=== PATIENT | female | born 1965 | race Caucasian/White ===

== ENCOUNTER 2018-07-08 18:19 | Inpatient (IN) | payer BC ==
[~2018-07-08 18:19] MED LIST: ISOVUE-370 76%-LOCM 1 ML ONE
[2018-07-08 18:51] LABS: #Lymphocytes 0.8 thou/uL (1.20-3.40); #Monocytes 0.9 thou/uL (0.11-0.59); #Neutrophils 7.9 thou/uL (1.40-6.50); %Basophils 0.1 % (0.0-1.0); %Eosinophils 0.4 % (0.0-10.0); %Lymphocytes 8.5 % (21.0-51.0); %Monocytes 9.6 % (0.0-10.0); %Neutrophils 81.3 % (42.0-75.0); Hemoglobin 13.9 g/dL (12.0-16.0); Mean Corpuscular HGB CONC 33.4 g/dL (32.0-36.0); Mean Corpuscular Hemoglobin 31.1 pg (27.0-31.0); Mean Corpuscular Volume 93.2 fL (78.0-98.0); Mean Platelet Volume 6.9 fL (7.4-10.4); Platelet Count 197 thou/uL (130-400); Red Blood Cell (RBC) Count 4.47 mill/uL (4.20-5.40); White Blood Cell (WBC) Count 9.7 thou/uL (4.8-10.8)
[2018-07-08 18:55] LABS: Bilirubin Negative (Negative); Blood, Urine Small (Negative); Clarity CLOUDY (Clear); Glucose, Urine (Dipstick) Negative (Negative); Leukocyte Large (Negative); Nitrite Negative (Negative); Protein, Urine (Dipstick) Trace mg/dL (Neg-Trace); Specific Gravity, Urine 1.009 (1.002-1.036); pH, Urine 6.5 (5.0-9.0)
[2018-07-08 18:59] LABS: Bacteria/HPF 1+ HPF (None Seen); Hyaline Casts/LPF 0-3 HYALINE CAST LPF (0-3 Hyaline); Pathc Cast-AUWi Flag 0.14 (0-2.49); Squamous Epithelial 0-3 HPF (0-3)
[2018-07-08 19:12] LABS: ALT (SGPT) 28 U/L (8-55); AST (SGOT) 25 U/L (5-34); Albumin 4.3 g/dL (3.5-5.0); Alkaline Phosphatase 87 U/L (40-150); Anion Gap 16 mmol/L (10-20); BUN (Urea Nitrogen) 8 mg/dL (9.8-20.1); Bilirubin, Total 0.7 mg/dL (0.2-1.2); Calc. Creatinine Clearance 0 mL/min (70-130); Calcium 10.3 mg/dL (7.8-10.44); Carbon Dioxide 26 mmol/L (22-29); Chloride 99 mmol/L (98-107); Estimated GFR-MDRD 83; Globulin 3.4 g/dL (2.4-3.5); Glucose 94 mg/dL (70-105); Protein, Total 7.7 g/dL (6.0-8.3); Sodium 138 mmol/L (136-145)
[2018-07-08] MEDS ORDERED: Ondansetron HCl/PF 4 MG/2 ML Vial ONE (19:20)
[2018-07-08] MEDS ORDERED: Morphine 4 MG/ML VIAL ONE ×2 (19:20→21:51)
--- NOTE | 2018-07-08 20:52 | CT ---
CT ABDOMEN AND PELVIS WITH IV CONTRAST: 07/08/18 HISTORY: Abdominal pain. COMPARISON: 07/16/15. FINDINGS: Mild atelectasis and scarring at the lung bases. Liver, spleen, kidneys, adrenal glands, and pancreas have a normal CT appearance. Postoperative changes of the cecum. Appendix is absent. Degenerative ch anges lumbar spine. No free air or free fluid. IMPRESSION: Postoperative changes. No significant abnormalities are demonstrated. POS: JONELLE
[2018-07-08] MEDS ORDERED: cefTRIAXone\\ROCEPHIN 1 GM VIAL ONE (20:55)
[2018-07-08] MEDS ORDERED: Acetaminophen 500 MG TAB ONE (20:55)
[2018-07-08] MEDS ORDERED: Potassium Chloride 20 MEQ TAB ONE (21:02)
[2018-07-08] MEDS ORDERED: Ondansetron ODT 4 MG TAB PO PRN (22:04)
[2018-07-08] MEDS ORDERED: cefTRIAXone\\ROCEPHIN 1 GM in Sodium Chloride 0.9% 100 ML IVPB SCH (23:15)
[2018-07-09 00:22] VITALS: BMI 35.1
[2018-07-09] MEDS: Acetaminophen 325 MG TAB PO PRN ×2 (03:41→14:53)
[2018-07-09] MEDS: Ketorolac Tromethamine 30 MG/ML VIAL IVP PRN ×2 (04:21→16:51)
[2018-07-09 04:30] LABS: #Lymphocytes 0.6 thou/uL (1.20-3.40); #Monocytes 0.7 thou/uL (0.11-0.59); #Neutrophils 6.4 thou/uL (1.40-6.50); %Basophils 0.3 % (0.0-1.0); %Eosinophils 0.3 % (0.0-10.0); %Lymphocytes 7.1 % (21.0-51.0); %Monocytes 9.4 % (0.0-10.0); %Neutrophils 82.9 % (42.0-75.0); Hemoglobin 11.9 g/dL (12.0-16.0); Mean Corpuscular HGB CONC 33.3 g/dL (32.0-36.0); Mean Corpuscular Hemoglobin 30.8 pg (27.0-31.0); Mean Corpuscular Volume 92.6 fL (78.0-98.0); Mean Platelet Volume 7.4 fL (7.4-10.4); Platelet Count 156 thou/uL (130-400); RBC Distribution Width 12.8 % (11.5-14.5); Red Blood Cell (RBC) Count 3.85 mill/uL (4.20-5.40); White Blood Cell (WBC) Count 7.7 thou/uL (4.8-10.8)
[2018-07-09 04:41] LABS: Anion Gap 13 mmol/L (10-20); BUN (Urea Nitrogen) 9 mg/dL (9.8-20.1); Calc. Creatinine Clearance 137 mL/min (70-130); Carbon Dioxide 23 mmol/L (22-29); Chloride 103 mmol/L (98-107); Estimated GFR-MDRD 87; Glucose 132 mg/dL (70-105); Potassium 3.1 mmol/L (3.5-5.1); Sodium 136 mmol/L (136-145)
[2018-07-09] MEDS: Sodium Chloride 0.9% 1,000 ML IV SCH ×3 (04:44→21:15)
[2018-07-09] MEDS ORDERED: ALPRAZolam 0.5 MG TAB PO SCH (04:45)
[2018-07-09] MEDS ORDERED: Potassium Chloride 20 MEQ TAB PO SCH ×2 (05:30→18:30)
--- NOTE | 2018-07-09 06:39 | HP ---
CHIEF COMPLAINT: Abdominal pain. HISTORY OF PRESENT ILLNESS: This is a 53-year-old female who presents to the ED with chief complaint of left lower abdominal pain radiating to the back, which started last night prior to the day of adm ission. Per the patient, the pain was 10/10 and the patient stated that nothing seemed to make the pa in better. The patient also states that she has had associated symptoms of myalgias, feeling ill and having chills. In addition, the patient states that she recently also had a divorce with her husban d and she has been feeling a little stressed from the situation. The patient states that now she is by herself and she just has a big dog that she takes care of by herself and she does all the chores i n the house and it is a little bit much. The patient has had a history of back surgeries and hip rep lacements in the past and the patient states that all these are contributing to her pains in her join ts, in her back, in addition to everything else that is going on. The patient denies any seizures at this time, diarrhea, dysuria, increase in frequency with urination. REVIEW OF SYSTEMS: Positive for chills, abdominal pain, myalgias and back and joint pains. Otherwis e as documented in the HPI. All other systems were reviewed and are negative. FAMILY HISTORY: Reviewed and noncontributory. PAST MEDICAL HISTORY: 1. Subdural hemorrhage. 2. Hyperlipidemia 3. Hypertension. PAST SURGICAL HISTORY: Appendectomy, lumbar surgery, total hip replacement of the right, hysterectom y, tonsillectomy. PSYCHIATRIC HISTORY: Depression, anxiety. SOCIAL HISTORY: The patient used to be a heavy smoker, quit about 5 years ago, but smokes some tobac co occasionally with her friends when they are drinking. The patient states that she has less than 5 drinks per day. The patient denies any illicit drug use. The patient currently lives at home by he rself with her dog. ALLERGIES: No known drug allergies. HOME MEDICATIONS: The patient takes pravastatin 80 mg, sertraline 25 mg, bisoprolol 10 mg, Xanax, es tradiol. PHYSICAL EXAMINATION: VITAL SIGNS: Blood pressure is 160/74, pulse of 100, respiratory rate of 17, temperature of 102.9, o xygen saturation of 94% on room air. GENERAL: The patient is lying on her left side, complaining of left quadrant abdominal pain, not in acute distress, able to speak in full sentences. HEENT: Normocephalic, atraumatic. Pupils are equally round and react to light. Extraocular movemen ts are intact. No scleral icterus. Mucous membranes are moist. NECK: No JVD. Full range of motion, supple. LUNGS: Clear to auscultation bilaterally. No wheezing, no rales, no rhonchus appreciated. CARDIOVASCULAR: Positive S1, S2, regular rate and rhythm. No murmurs appreciated. ABDOMEN: Mild tenderness at the left lower quadrant and suprapubic region. Obese abdomen. Soft, po sitive bowel sounds. BACK: Full range of motion, no tenderness. EXTREMITIES: 5/5 upper extremity strength, good pulses bilaterally, 5/5 lower extremity strength, go od pulses bilaterally. No edema noted at the lower extremities. NEUROLOGIC: Cranial nerves II-XII grossly intact. No neurologic deficit noted. SKIN: Warm, dry, and intact. EMERGENCY DEPARTMENT COURSE: The patient received Tylenol, Rocephin, normal saline, Zofran, and morp rush in the ED. LABORATORY DATA: WBC is 9.7, hemoglobin 13.9, hematocrit is 41.7, platelets 197, neutrophils of 81.3 , lymphocytes of 8.5. Sodium 138, potassium of 3.0, BUN of 8, creatinine is 0.73. Lactic acid of 0. 7, AST 25, ALT 28, alkaline phosphatase of 87. Urinalysis positive for leukoesterase negative for ni trites. ASSESSMENT AND PLAN: This is a 53-year-old female being admitted for: 1. Sepsis secondary to urinary tract infection. At this point, the patient has been started on Roce phin. We will continue Rocephin. We will continue IV hydration. We will give patient p.r.n. medica tion for pain. We will follow up morning labs. 2. Hypokalemia, replete the patient's potassium. We will follow up in the morning. 3. Generalized pain. At this point we will continue patient on p.r.n. pain medication. We will mon itor the patient closely. 4. History of depression, anxiety. The patient recently her . The patient is venkata sam at this time. We will start the patient on her home depressive medications. We will continue Xanax p.r.n. 5. Hypertension. We will continue the patient on her home medication. 6. Hyperlipidemia. We will continue patient on home medications. 7. Deep venous thrombosis and gastrointestinal prophylaxis.
[2018-07-09] MEDS ORDERED: (Biotin [Mega Biotin] 10,000 MCG) PO SCH (09:00)
[2018-07-09] MEDS: ALPRAZolam 0.5 MG TAB PO SCH ×3 (09:26→21:16)
[2018-07-09] MEDS: Multivit, Therapeutic 1 TAB PO SCH (09:26)
[2018-07-09] MEDS: Bisoprolol Fumarate 5 MG TAB PO SCH (09:27)
[2018-07-09] MEDS: Ondansetron HCl/PF 4 MG/2 ML Vial IVP PRN (14:53)
--- NOTE | 2018-07-09 18:24 | PDOC.PN ---
- Subjective Encounter Start Date: 07/09/18 Encounter Start Time: 08:40 Pt seen for followup re: sepsis. Feels better. No chest pain, shortness of breath, fevers or chills. - Objective Resuscitation Status: Resuscitation Status DNR:Do Not Resuscitate MAR Reviewed: Yes Vital Signs & Weight: Vital Signs (12 hours) Temp Pulse Resp BP Pulse Ox 07/09/18 16:00 98.8 F 79 20 94/58 L 90 L 07/09/18 12:00 97.8 F 76 20 102/67 94 L 07/09/18 08:00 98.1 F 73 20 94/60 95 Weight Weight 211 lb 3.245 oz I&O: 07/08/18 07/09/18 07/10/18 06:59 06:59 06:59 Intake Total 620 Balance 620 Result Diagrams: 07/09/18 03:49 07/09/18 03:49 Additional Labs: Labs reviewed by me Phys Exam - Physical Examination Obese HEENT: moist MMs, sclera anicteric, oral pharynx no lesions, 2+ tonsils Neck: no nodes, no JVD, supple, full ROM Respiratory: no wheezing, no rales, no rhonchi, clear to auscultation bilateral Cardiovascular: RRR, no rub S1, S2 Gastrointestinal: soft, non-tender, no distention, positive bowel sounds Neurological: moves all 4 limbs Psychiatric: normal affect, A&O x 3 Dx/Plan (1) Sepsis Code(s): A41.9 - SEPSIS, UNSPECIFIED ORGANISM Status: Acute Comment: Improving, secondary to UTI (2) UTI (urinary tract infection) Status: Acute Comment: Continue ceftriaxone, follow urine and blood cultures (3) Hypokalemia Code(s): E87.6 - HYPOKALEMIA Status: Acute Comment: replace potassium, recheck (4) HTN (hypertension) Code(s): I10 - ESSENTIAL (PRIMARY) HYPERTENSION Status: Chronic Comment: controlled (5) Dyslipidemia Code(s): E78.5 - HYPERLIPIDEMIA, UNSPECIFIED Status: Chronic Comment: continue statin - Plan * . Review of Systems - Review of Systems Constitutional: weakness. negative: fever, chills, sweats, malaise Cardiovascular: negative: chest pain, palpitations, orthopnea, paroxysmal nocturnal dyspnea, edema, light headedness Gastrointestinal: negative: Nausea, Vomiting, Abdominal Pain, Diarrhea, Constipation, Melena, Hematochezia Genitourinary: Dysuria. negative: Frequency, Incontinence, Hematuria, Retention Musculoskeletal: negative: Neck Pain, Shoulder Pain, Arm Pain, Back Pain, Hand Pain, Leg Pain, Foot Pain Skin: negative: Rash, Lesions, Ti, Bruising - Medications/Allergies Allergies/Adverse Reactions: Allergies Allergy/AdvReac Type Severity Reaction Status Date / Time No Known Allergies Allergy Verified 06/29/15 13:22 Medications: Current Medications Acetaminophen (Tylenol) 650 mg PO Q4H PRN PRN Reason: Headache/Fever/Mild Pain (1-3) Last Admin: 07/09/18 14:53 Dose: 650 mg Alprazolam (Xanax) 0.5 mg PO TID [facility] Last Admin: 07/09/18 14:52 Dose: 0.5 mg Atorvastatin Calcium (Lipitor) 20 mg PO HS [facility] Bisoprolol Fumarate (Zebeta) 10 mg PO DAILY [facility] Last Admin: 07/09/18 09:27 Dose: 10 mg Sodium Chloride (Normal Saline 0.9%) 1,000 mls @ 80 mls/hr IV .[id number] [facility] Last Admin: 07/09/18 16:51 Dose: 1,000 mls Ceftriaxone Sodium 2 gm/ (Sodium Chloride) 100 mls @ 200 mls/hr IVPB 1830 [facility] Ketorolac Tromethamine (Toradol) 30 mg IVP Q6H PRN PRN Reason: Pain Stop: 07/14/18 03:58 Last Admin: 07/09/18 16:51 Dose: 30 mg Miscellaneous Medication (Pharmacy To Dose) 1 each IVPB ONE PRN PRN Reason: Pharmacy to dose Stop: 07/18/18 22:12 Multivitamins (Theragran) 1 tab PO DAILY [facility] Last Admin: 07/09/18 09:26 Dose: 1 tab Ondansetron HCl (Zofran Odt) 4 mg PO Q6H PRN PRN Reason: Nausea/Vomiting Last Admin: 07/09/18 03:28 Dose: 4 mg Ondansetron HCl (Zofran) 4 mg IVP Q6H PRN PRN Reason: Nausea/Vomiting Last Admin: 07/09/18 14:53 Dose: 4 mg (Biotin [Sky Biotin (] 10,000 Mcg)) 1 each PO DAILY [facility] Sertraline HCl (Zoloft) 100 mg PO HS [facility] Sodium Chloride (Flush - Normal Saline) 10 ml IVF Q12HR PRN PRN Reason: Saline Flush Sodium Chloride (Flush - Normal Saline) 10 ml IVF PRN PRN PRN Reason: Saline Flush Zolpidem Tartrate (Ambien) 5 mg PO HS [facility]
[2018-07-09] MEDS ORDERED: cefTRIAXone\\ROCEPHIN 2 GM in Sodium Chloride 0.9% 100 ML IVPB SCH (18:30)
[2018-07-09] MEDS ORDERED: Meropenem 1 GM in Sodium Chloride 0.9% 100 ML IVPB SCH (18:30)
[2018-07-09] MEDS: Zolpidem Tartrate 5 MG TAB PO SCH (21:16)
[2018-07-09] MEDS: Atorvastatin Calcium 20 MG TAB PO SCH (21:16)
[2018-07-09] MEDS: MEROPENEM 1 GM/50 ML 1 GM in Premix Bag 1 BAG IVPB SCH (21:17)
[2018-07-10] MEDS: Ketorolac Tromethamine 30 MG/ML VIAL IVP PRN ×3 (00:58→22:07)
[2018-07-10 04:08] LABS: #Lymphocytes 0.6 thou/uL (1.20-3.40); #Monocytes 0.6 thou/uL (0.11-0.59); #Neutrophils 3.1 thou/uL (1.40-6.50); %Eosinophils 0.4 % (0.0-10.0); %Monocytes 13.4 % (0.0-10.0); %Neutrophils 72.2 % (42.0-75.0); Hemoglobin 10.9 g/dL (12.0-16.0); Mean Corpuscular HGB CONC 32.3 g/dL (32.0-36.0); Mean Corpuscular Hemoglobin 30.3 pg (27.0-31.0); Mean Corpuscular Volume 93.9 fL (78.0-98.0); Mean Platelet Volume 7.7 fL (7.4-10.4); Platelet Count 133 thou/uL (130-400); RBC Distribution Width 12.8 % (11.5-14.5); White Blood Cell (WBC) Count 4.3 thou/uL (4.8-10.8)
[2018-07-10 04:25] LABS: Anion Gap 10 mmol/L (10-20); BUN (Urea Nitrogen) 13 mg/dL (9.8-20.1); Calc. Creatinine Clearance 134 mL/min (70-130); Calcium 8.6 mg/dL (7.8-10.44); Carbon Dioxide 25 mmol/L (22-29); Chloride 107 mmol/L (98-107); Estimated GFR-MDRD 84; Glucose 116 mg/dL (70-105); Potassium 3.7 mmol/L (3.5-5.1); Sodium 138 mmol/L (136-145)
[2018-07-10] MEDS: MEROPENEM 1 GM/50 ML 1 GM in Premix Bag 1 BAG IVPB SCH ×3 (04:40→20:55)
[2018-07-10] MEDS: Multivit, Therapeutic 1 TAB PO SCH (09:40)
[2018-07-10] MEDS: Bisoprolol Fumarate 5 MG TAB PO SCH (09:40)
[2018-07-10] MEDS: ALPRAZolam 0.5 MG TAB PO SCH ×3 (09:40→21:03)
[2018-07-10 13:00] LABS: Syphilis Antibody Nonreactive (Nonreactive); Syphilis Antibody Index 0.06 S/CO (<1.00 Non-Reactive)
[2018-07-10 13:34] LABS: HIV (1/2) Antibody/Antigen Non-Reactive (NonReactive); HIV 1/2 INDEX 0.17 S/CO (<1.00); Hep C IgG Ab Non-Reactive (NonReactive); Hep C Index 0.04 S/CO (0-0.79)
[2018-07-10] MEDS: Sodium Chloride 0.9% 1,000 ML IV SCH (14:21)
--- NOTE | 2018-07-10 15:44 | PDOC.PN ---
- Subjective Encounter Start Date: 07/10/18 Encounter Start Time: 09:00 Pt seen for followup re: bacteremia. Denies chest pain or shortness of breath. Feels better. - Objective Resuscitation Status: Resuscitation Status DNR:Do Not Resuscitate MAR Reviewed: Yes Vital Signs & Weight: Vital Signs (12 hours) Temp Pulse Resp BP Pulse Ox 07/10/18 08:00 98.2 F 68 18 114/73 92 L Weight Weight 211 lb 3.245 oz I&O: 07/09/18 07/10/18 07/11/18 06:59 06:59 06:59 Intake Total 620 Balance 620 Result Diagrams: 07/10/18 03:40 07/10/18 03:40 Additional Labs: Labs reviewed by me Phys Exam - Physical Examination Obese HEENT: moist MMs, sclera anicteric, oral pharynx no lesions, 2+ tonsils Neck: no nodes, no JVD, supple, full ROM Respiratory: no wheezing, no rales, no rhonchi, clear to auscultation bilateral Cardiovascular: RRR, no rub S1, s2 Gastrointestinal: soft, non-tender, no distention, positive bowel sounds Neurological: moves all 4 limbs Psychiatric: normal affect, A&O x 3 Dx/Plan (1) Bacteremia Code(s): R78.81 - BACTEREMIA Status: Acute Comment: 1/2 blood cultures positive for E. coli, await sensitivities. Likely origin from urinary tract. Continue IV meropenem. (2) UTI (urinary tract infection) Status: Acute Comment: Continue IV meropenem (3) HTN (hypertension) Code(s): I10 - ESSENTIAL (PRIMARY) HYPERTENSION Status: Chronic Comment: controlled (4) Dyslipidemia Code(s): E78.5 - HYPERLIPIDEMIA, UNSPECIFIED Status: Chronic Comment: on statin (5) Sepsis Code(s): A41.9 - SEPSIS, UNSPECIFIED ORGANISM Status: Resolved (6) Hypokalemia Code(s): E87.6 - HYPOKALEMIA Status: Resolved - Plan * . Review of Systems - Review of Systems Constitutional: weakness. negative: fever, chills, sweats, malaise Cardiovascular: negative: chest pain, palpitations, orthopnea, paroxysmal nocturnal dyspnea, edema, light headedness Gastrointestinal: negative: Nausea, Vomiting, Abdominal Pain, Diarrhea, Constipation, Melena, Hematochezia Genitourinary: negative: Dysuria, Frequency, Incontinence, Hematuria, Retention Skin: negative: Rash, Lesions, Ti, Bruising Neurological: negative: Weakness, Numbness, Incoordination, Change in Speech, Confusion, Seizures - Medications/Allergies Allergies/Adverse Reactions: Allergies Allergy/AdvReac Type Severity Reaction Status Date / Time No Known Allergies Allergy Verified 06/29/15 13:22 Medications: Current Medications Acetaminophen (Tylenol) 650 mg PO Q4H PRN PRN Reason: Headache/Fever/Mild Pain (1-3) Last Admin: 07/09/18 14:53 Dose: 650 mg Alprazolam (Xanax) 0.5 mg PO TID [facility] Last Admin: 07/10/18 14:14 Dose: 0.5 mg Atorvastatin Calcium (Lipitor) 20 mg PO HS [facility] Last Admin: 07/09/18 21:16 Dose: 20 mg Bisoprolol Fumarate (Zebeta) 10 mg PO DAILY [facility] Last Admin: 07/10/18 09:40 Dose: 10 mg Estradiol (Estrace) 1 mg PO DAILY [facility] Sodium Chloride (Normal Saline 0.9%) 1,000 mls @ 80 mls/hr IV .[id number] [facility] Last Admin: 07/10/18 14:21 Dose: 1,000 mls Meropenem 1 gm/ Device 50 mls @ 100 mls/hr IVPB 0400,1200,2000 [facility] Last Admin: 07/10/18 14:14 Dose: 50 mls Ketorolac Tromethamine (Toradol) 30 mg IVP Q6H PRN PRN Reason: Pain Stop: 07/14/18 03:58 Last Admin: 07/10/18 09:44 Dose: 30 mg Miscellaneous Medication (Pharmacy To Dose) 1 each IVPB ONE PRN PRN Reason: Pharmacy to dose Stop: 07/18/18 22:12 Multivitamins (Theragran) 1 tab PO DAILY [facility] Last Admin: 07/10/18 09:40 Dose: 1 tab Ondansetron HCl (Zofran Odt) 4 mg PO Q6H PRN PRN Reason: Nausea/Vomiting Last Admin: 07/09/18 03:28 Dose: 4 mg Ondansetron HCl (Zofran) 4 mg IVP Q6H PRN PRN Reason: Nausea/Vomiting Last Admin: 07/09/18 14:53 Dose: 4 mg Sertraline HCl (Zoloft) 100 mg PO HS [facility] Last Admin: 07/09/18 21:15 Dose: 100 mg Sodium Chloride (Flush - Normal Saline) 10 ml IVF Q12HR PRN PRN Reason: Saline Flush Sodium Chloride (Flush - Normal Saline) 10 ml IVF PRN PRN PRN Reason: Saline Flush Zolpidem Tartrate (Ambien) 5 mg PO HS [facility] Last Admin: 07/09/18 21:16 Dose: 5 mg
[2018-07-10] MEDS: Zolpidem Tartrate 5 MG TAB PO SCH (21:03)
[2018-07-10] MEDS: Atorvastatin Calcium 20 MG TAB PO SCH (21:04)
--- NOTE | 2018-07-10 22:58 | CON ---
DATE OF CONSULTATION: 07/10/2018 HISTORY OF PRESENT ILLNESS: Ms. Roe is a 53-year-old lady who has history of hyperlipidemia, hypertension, prior subdural hematoma, who developed chills and then abdominal pain which she descri bes in the left lower quadrant, wrapping around towards the flank. She was brought to the hospital b y her daughter the next day and on arrival, BP 160/74, temperature 102.9. She was complaining of subha n in the left lower quadrant in the abdominal area. She never had any urinary symptoms. No respirat ory symptoms. No back pain, no joint symptoms. No neurological symptoms. PAST MEDICAL HISTORY: Includes subdural hemorrhage, hyperlipidemia, hypertension. SOCIAL HISTORY: She used to smoke, quit 5 years before. She is from her , lives al one. ALLERGIES: None. CURRENT MEDICATIONS: Tylenol, Xanax, Lipitor, Zebeta, Estrace, Toradol, meropenem, IV fluids. FAMILY HISTORY: Noncontributory. PHYSICAL EXAMINATION: VITAL SIGNS: T-max 100.4, now 98.4. Other vital signs are fairly unremarkable. O2 sats 92%. SKIN: Skin exam was okay. Peripheral IV access. She does not have a Billy catheter. No lymphadeno duncan. HEENT: Ocular movements conjugate. Oral cavity moist. NECK: Supple. LUNGS: Symmetric clear breath sounds. HEART: S1, S2, regular rate without murmurs. ABDOMEN: Soft and not distended or tender, maybe a little bit of tenderness left lower quadrant. No flank tenderness. No bladder distention. EXTREMITIES: No joint inflammatory activity. Moves extremities equally. Plantar responses are flex ure. Pulses 1+ in dorsalis pedis. NEUROLOGIC: Nonfocal including cognitive function. LABORATORY DATA: White cell count is 9.7 on admission, now 4.3, hemoglobin 10.9, MCV 93, platelets 1 33. Neutrophil percentage down from 81 to 72, Sodium 136, creatinine 0.73 with normal liver profile, magnesium 1.4. Urinalysis with greater than 50 wbc's and serology, HIV, hepatitis C, and syphilis s erology nonreactive. She has 1/2 sets of blood cultures positive for E. coli and the urine culture p ending. The urinalysis was abnormal as noted above. IMAGING STUDIES: Include an abdomen and pelvis CT which was not particularly remarkable. ASSESSMENT: New onset of chills with left lower quadrant flank abdominal pain with abnormal urinalys is and Escherichia coli bacteremia. DISCUSSION: The most likely scenario is pyelonephritis without symptoms of cystitis. She does not h ave any evidence of obstruction and management for now will be to verify proper voiding with a post-v oid residual measurement and then once identification and susceptibility profile was completed, then hopefully transition to oral antimicrobial therapy. If it is an ESBL strain, then we will have to pl will a PICC line and treat her with IV antimicrobials for a total of 14 days.
[2018-07-11 04:41] LABS: Band 18 % (5-11); Eosinophils 2 % (0-10); Hemoglobin 10.7 g/dL (12.0-16.0); Lymphocytes 25 % (21-51); MDiff Complete? YES; Mean Corpuscular HGB CONC 32.8 g/dL (32.0-36.0); Mean Corpuscular Hemoglobin 30.8 pg (27.0-31.0); Mean Corpuscular Volume 93.8 fL (78.0-98.0); Mean Platelet Volume 8.1 fL (7.4-10.4); Monocytes 10 % (0-10); Neutrophil 44 % (42-75); PLT Morphology Comment Appears Adequate; Platelet Count 128 thou/uL (130-400); RBC Distribution Width 12.8 % (11.5-14.5); Red Blood Cell (RBC) Count 3.47 mill/uL (4.20-5.40); White Blood Cell (WBC) Count 4.3 thou/uL (4.8-10.8)
[2018-07-11] MEDS: Sodium Chloride 0.9% 1,000 ML IV SCH ×2 (04:42→17:44)
[2018-07-11] MEDS: MEROPENEM 1 GM/50 ML 1 GM in Premix Bag 1 BAG IVPB SCH (04:43)
[2018-07-11 04:58] LABS: Anion Gap 10 mmol/L (10-20); BUN (Urea Nitrogen) 12 mg/dL (9.8-20.1); Calc. Creatinine Clearance 153 mL/min (70-130); Calcium 8.8 mg/dL (7.8-10.44); Carbon Dioxide 26 mmol/L (22-29); Chloride 107 mmol/L (98-107); Estimated GFR-MDRD Greater than 90; Glucose 102 mg/dL (70-105); Potassium 3.9 mmol/L (3.5-5.1); Sodium 139 mmol/L (136-145)
[2018-07-11] MEDS: Ketorolac Tromethamine 30 MG/ML VIAL IVP PRN ×3 (08:01→20:33)
[2018-07-11] MEDS: ALPRAZolam 0.5 MG TAB PO SCH ×3 (08:03→20:29)
[2018-07-11] MEDS: Estradiol 1 MG TAB PO SCH (08:03)
[2018-07-11] MEDS: Acetaminophen 325 MG TAB PO PRN (08:06)
[2018-07-11] MEDS: Ondansetron HCl/PF 4 MG/2 ML Vial IVP PRN (08:07)
[2018-07-11] MEDS: Multivit, Therapeutic 1 TAB PO SCH (08:07)
[2018-07-11] MEDS: Bisoprolol Fumarate 5 MG TAB PO SCH (08:09)
[2018-07-11] MEDS ORDERED: Cipro 250 MG TAB PO SCH ×2 (09:45→20:00)
[2018-07-11] MEDS ORDERED: Ciprofloxacin 500 MG TAB PO SCH (10:00)
[2018-07-11] MEDS ORDERED: Promethazine HCl 25 MG in Sodium Chloride 0.9% 50 ML IVPB PRN (16:09)
--- NOTE | 2018-07-11 18:19 | PDOC.PN ---
- Subjective Encounter Start Date: 07/11/18 Encounter Start Time: 09:00 Pt seen for followup re: bacteremia. Feels better today. No chest pain or shortnes of breath. - Objective Resuscitation Status: Resuscitation Status DNR:Do Not Resuscitate MAR Reviewed: Yes Vital Signs & Weight: Vital Signs (12 hours) Temp Pulse Resp BP BP Pulse Ox 07/11/18 17:11 97.9 F 66 16 137/83 90 L 07/11/18 08:00 100.2 F H 62 18 162/83 H 92 L Weight Weight 211 lb 3.245 oz Result Diagrams: 07/11/18 03:55 07/11/18 03:55 Additional Labs: labs reviewed by me Phys Exam - Physical Examination Obese HEENT: moist MMs Neck: supple Respiratory: clear to auscultation bilateral Cardiovascular: RRR Gastrointestinal: soft Neurological: moves all 4 limbs Psychiatric: normal affect Dx/Plan (1) Bacteremia Code(s): R78.81 - BACTEREMIA Status: Acute Comment: E. coli pansensitive, change antibiotic to ciprofloxacin. Pt had low-grade fever today, observe for another 24 hours. (2) UTI (urinary tract infection) Status: Acute Comment: start ciprofloxacin (3) HTN (hypertension) Code(s): I10 - ESSENTIAL (PRIMARY) HYPERTENSION Status: Chronic Comment: controlled (4) Dyslipidemia Code(s): E78.5 - HYPERLIPIDEMIA, UNSPECIFIED Status: Chronic Comment: continue statin (5) Sepsis Code(s): A41.9 - SEPSIS, UNSPECIFIED ORGANISM Status: Resolved (6) Hypokalemia Code(s): E87.6 - HYPOKALEMIA Status: Resolved - Plan * . Review of Systems - Review of Systems Respiratory: negative: Cough, Shortness of Breath, SOB with Excertion, Pleuritic Pain, Wheezing Cardiovascular: negative: chest pain, palpitations, orthopnea, paroxysmal nocturnal dyspnea, edema, light headedness - Medications/Allergies Allergies/Adverse Reactions: Allergies Allergy/AdvReac Type Severity Reaction Status Date / Time No Known Allergies Allergy Verified 06/29/15 13:22 Medications: Current Medications Acetaminophen (Tylenol) 650 mg PO Q4H PRN PRN Reason: Headache/Fever/Mild Pain (1-3) Last Admin: 07/11/18 08:06 Dose: 650 mg Alprazolam (Xanax) 0.5 mg PO TID [facility] Last Admin: 07/11/18 14:41 Dose: 0.5 mg Atorvastatin Calcium (Lipitor) 20 mg PO HS [facility] Last Admin: 07/10/18 21:04 Dose: 20 mg Bisoprolol Fumarate (Zebeta) 10 mg PO DAILY [facility] Last Admin: 07/11/18 08:09 Dose: 10 mg Ciprofloxacin (Cipro) 500 mg PO 0600,2000 [facility] Estradiol (Estrace) 1 mg PO DAILY [facility] Last Admin: 07/11/18 08:03 Dose: 1 mg Sodium Chloride (Normal Saline 0.9%) 1,000 mls @ 80 mls/hr IV .[id number] [facility] Last Admin: 07/11/18 17:44 Dose: 1,000 mls Promethazine HCl 25 mg/ Sodium (Chloride) 51 mls @ 204 mls/hr IVPB Q6H PRN PRN Reason: Nausea Ketorolac Tromethamine (Toradol) 30 mg IVP Q6H PRN PRN Reason: Pain Stop: 07/14/18 03:58 Last Admin: 07/11/18 14:40 Dose: 30 mg Miscellaneous Medication (Pharmacy To Dose) 1 each IVPB ONE PRN PRN Reason: Pharmacy to dose Stop: 07/18/18 22:12 Multivitamins (Theragran) 1 tab PO DAILY [facility] Last Admin: 07/11/18 08:07 Dose: 1 tab Sertraline HCl (Zoloft) 100 mg PO HS [facility] Last Admin: 07/10/18 21:04 Dose: 100 mg Sodium Chloride (Flush - Normal Saline) 10 ml IVF Q12HR PRN PRN Reason: Saline Flush Sodium Chloride (Flush - Normal Saline) 10 ml IVF PRN PRN PRN Reason: Saline Flush Zolpidem Tartrate (Ambien) 5 mg PO HS [facility] Last Admin: 07/10/18 21:03 Dose: 5 mg
[2018-07-11] MEDS: Atorvastatin Calcium 20 MG TAB PO SCH (20:29)
[2018-07-11] MEDS: Ciprofloxacin 500 MG TAB PO SCH (20:29)
[2018-07-11] MEDS: Zolpidem Tartrate 5 MG TAB PO SCH (20:29)
[2018-07-11] MEDS: Bisacodyl 5 MG TAB PO PRN (20:33)
[2018-07-11] MEDS: Mag-Al 1200 mg/1200 mg/30 ML UDCUP PO PRN (20:33)
[2018-07-12 04:58] LABS: Anion Gap 10 mmol/L (10-20); BUN (Urea Nitrogen) 9 mg/dL (9.8-20.1); Calc. Creatinine Clearance 166 mL/min (70-130); Calcium 8.6 mg/dL (7.8-10.44); Carbon Dioxide 25 mmol/L (22-29); Chloride 107 mmol/L (98-107); Estimated GFR-MDRD Greater than 90; Glucose 97 mg/dL (70-105); Potassium 3.6 mmol/L (3.5-5.1); Sodium 138 mmol/L (136-145)
[2018-07-12 05:21] LABS: Band 13 % (5-11); Eosinophils 3 % (0-10); Hemoglobin 10.9 g/dL (12.0-16.0); Lymphocytes 10 % (21-51); MDiff Complete? YES; Mean Corpuscular HGB CONC 33.3 g/dL (32.0-36.0); Mean Corpuscular Hemoglobin 31.1 pg (27.0-31.0); Mean Corpuscular Volume 93.5 fL (78.0-98.0); Mean Platelet Volume 8.5 fL (7.4-10.4); Monocytes 18 % (0-10); Neutrophil 54 % (42-75); PLT Morphology Comment Appears Adequate; Platelet Count 155 thou/uL (130-400); RBC Distribution Width 12.8 % (11.5-14.5); RBC Morphology Normal; White Blood Cell (WBC) Count 5.6 thou/uL (4.8-10.8)
[2018-07-12] MEDS: Ciprofloxacin 500 MG TAB PO SCH (05:21)
[2018-07-12] MEDS: Ketorolac Tromethamine 30 MG/ML VIAL IVP PRN (05:24)
[2018-07-12] MEDS: ALPRAZolam 0.5 MG TAB PO SCH ×2 (09:03→15:12)
[2018-07-12] MEDS: Sodium Chloride 0.9% 1,000 ML IV SCH ×2 (09:03)
[2018-07-12] MEDS: Bisoprolol Fumarate 5 MG TAB PO SCH (09:04)
[2018-07-12] MEDS: Multivit, Therapeutic 1 TAB PO SCH (09:04)
[2018-07-12] MEDS: Estradiol 1 MG TAB PO SCH (09:04)
[2018-07-12] MEDS: Bisacodyl 5 MG TAB PO PRN (09:12)
[2018-07-12] MEDS: Mag-Al 1200 mg/1200 mg/30 ML UDCUP PO PRN (09:12)
[2018-07-12] MEDS ORDERED: Magnesium 2 GM/50 ML 2 GM in Premix Bag 1 BAG IVPB SCH (11:45)
[2018-07-12 15:17] VITALS: BP 130/82; TEMP 98.3
--- NOTE | 2018-07-12 21:32 | DIS ---
DATE OF ADMISSION: 07/08/2018 DATE OF DISCHARGE: 07/12/2018 PRIMARY CARE PROVIDER: Frank Saini M.D. DISCHARGE DIAGNOSES: 1. Sepsis. 2. Bacteremia. 3. Pyelonephritis. CONDITION OF PATIENT ON THE DAY OF DISCHARGE: Stable. I assessed Ms. Roe on the day of disc harge. She denies any chest pain or shortness of breath. Vital signs are stable. S1 and S2 are hea rd, regular. Lungs are clear to auscultation bilaterally. DISCHARGE MEDICATIONS: Xanax 0.5 mg 3 times a day, biotin 10,000 mcg daily, bisoprolol 10 mg daily, estradiol 1 mg daily, multivitamins 1 tablet daily, pravastatin 80 mg at bedtime, Zoloft 100 mg at be dtime, Ambien 5 mg at bedtime, Toradol 10 mg orally every 8 hours as needed, prescription for 15 tabl ets and ciprofloxacin 500 mg 2 times a day for 10 more days. CONSULTATIONS DURING THIS HOSPITALIZATION: Infectious disease, Dr. Alicea. HOSPITAL COURSE: Ms. Roe is a pleasant 53-year-old lady who was admitted to [facility] on 07/08/2018 for sepsis. Please refer to Dr. Costello's history and physical note d ated 07/09/2018 for further details. She was seen by Infectious Disease Service and she was diagnose d with bacteremia and pyelonephritis. One out of two blood cultures grew Escherichia coli that was p ansensitive. Final urine culture was negative. She improved in terms of fevers. She is being disch arged home in a stable condition. She is advised to follow up with her primary care provider in 3-5 days. On the day of discharge, her white count of 5600, hemoglobin 10.9, platelet count 155,000. Normal so dium, normal potassium, and creatinine of 0.58. Her magnesium was low at 1.4 on 07/09/2018. She is receiving 2 grams of magnesium intravenously prior to discharge. She also had serologies to syphilis , hepatitis C and HIV checked during this hospitalization, all of them were nonreactive. Many thanks for allowing me to participate in your patient's care. Please feel free to contact me wi th any questions or concerns. DISCHARGE DESTINATION: Home. TOTAL AMOUNT OF TIME SPENT COORDINATING THIS DISCHARGE: 32 minutes.
== END 2018-07-12 15:12 | disposition home or self-care (01) | DRG 872 ==
LOC: ERS 18:19 → T4-B 22:04
PROVIDERS: ADMIT Internal Medicine; ATTEND Internal Medicine
DX: A41.51 Sepsis due to Escherichia coli [E. coli] (principal); N10 Acute pyelonephritis; A41.9 Sepsis, unspecified organism; E78.5 Hyperlipidemia, unspecified; F32.9 Major depressive disorder, single episode, unspecified; F41.9 Anxiety disorder, unspecified; Z87.891 Personal history of nicotine dependence; Z79.899 Other long term (current) drug therapy; E87.6 Hypokalemia
CPT/HCPCS: 36415; 36416; 74177; 80048; 80053; 81003; 81015; 83605; 83735; 85025; 86780; 86803; 87040; 87077; 87086; 87149; 87186; 87389; 87804; 90471; 90686; 96361; 96374; 96375; 96376; G0008; J0696; J1885; J2185; J2270; J2405; J2550; J7050; Q0162

== ENCOUNTER 2018-08-18 09:56 | Emergency (ER) | payer BC ==
[2018-08-18 10:17] LABS: #Basophils 0.1 thou/uL (0.0-0.2); #Eosinphils 0.3 thou/uL (0.0-0.7); #Lymphocytes 2.1 thou/uL (1.20-3.40); #Monocytes 0.9 thou/uL (0.11-0.59); %Basophils 0.8 % (0.0-1.0); %Eosinophils 3.7 % (0.0-10.0); %Lymphocytes 28.3 % (21.0-51.0); %Monocytes 12.8 % (0.0-10.0); %Neutrophils 54.5 % (42.0-75.0); Hemoglobin 14.2 g/dL (12.0-16.0); Mean Corpuscular HGB CONC 32.8 g/dL (32.0-36.0); Mean Corpuscular Hemoglobin 29.4 pg (27.0-31.0); Mean Corpuscular Volume 89.6 fL (78.0-98.0); Mean Platelet Volume 7.3 fL (7.4-10.4); Platelet Count 266 thou/uL (130-400); RBC Distribution Width 13.5 % (11.5-14.5); Red Blood Cell (RBC) Count 4.84 mill/uL (4.20-5.40); White Blood Cell (WBC) Count 7.3 thou/uL (4.8-10.8)
[2018-08-18] MEDS ORDERED: Ketorolac Tromethamine 30 MG/ML VIAL ONE (10:43)
--- NOTE | 2018-08-18 10:55 | RAD ---
PORTABLE CHEST ONE VIEW: Date: 08-18-18 Time: 10:15 a.m. History: Chest pain FINDINGS/IMPRESSION: There is elevation of the right hemidiaphragm. The heart size is borderline. The lungs are expanded w ithout lobar consolidation, pneumothorax, or pleural effusions. There is a small focal density in the right infrahilar region/medial lung base. The possibility of th is representing an early/developing infiltrate cannot be excluded. POS: [facility]
[2018-08-18 10:57] LABS: ALT (SGPT) 36 U/L (8-55); AST (SGOT) 32 U/L (5-34); Albumin 4.3 g/dL (3.5-5.0); Alkaline Phosphatase 80 U/L (40-150); Anion Gap 11 mmol/L (10-20); BUN (Urea Nitrogen) 15 mg/dL (9.8-20.1); Bilirubin, Total 0.4 mg/dL (0.2-1.2); CK (CPK) 28 U/L (29-168); Calc. Creatinine Clearance 0 mL/min (70-130); Calcium 10.1 mg/dL (7.8-10.44); Carbon Dioxide 28 mmol/L (22-29); Chloride 103 mmol/L (98-107); Estimated GFR-MDRD 83; Globulin 3.1 g/dL (2.4-3.5); Glucose 79 mg/dL (70-105); Protein, Total 7.4 g/dL (6.0-8.3); Sodium 138 mmol/L (136-145)
[2018-08-18 10:59] LABS: CKMB 0.3 ng/mL (0-6.6); Troponin I Less than 0.010 ng/mL (< 0.028)
== END 2018-08-18 12:14 | disposition home or self-care (01) ==
LOC: ERS 09:56
DX: M79.601 Pain in right arm (principal); E78.5 Hyperlipidemia, unspecified; I10 Essential (primary) hypertension; F32.9 Major depressive disorder, single episode, unspecified; F17.210 Nicotine dependence, cigarettes, uncomplicated; Z79.899 Other long term (current) drug therapy
CPT/HCPCS: 36415; 71045; 80053; 82550; 82553; 84484; 85025; 93005; 96374; J1885

== ENCOUNTER 2024-04-03 13:34 | Outpatient (CLI) | payer OTHER ==
[2024-04-03 14:30] LABS: Hematocrit 40.1 % (34.9-44.5); Hemoglobin 14.2 g/dL (12.0-15.5); Mean Corpuscular HGB CONC 35.4 g/dL (32.0-36.0); Mean Corpuscular Hemoglobin 32.9 pg (27.0-33.0); Mean Corpuscular Volume 92.8 fL (81.6-98.3); Mean Platelet Volume 9.1 fL (7.4-10.4); Platelet Count 178 10x3/uL (150-450); RBC Distribution Width 12.6 % (11.5-14.5); Red Blood Cell (RBC) Count 4.32 10x6/uL (3.90-5.03); White Blood Cell (WBC) Count 4.9 10x3/uL (3.5-10.5)
[2024-04-03 14:35] LABS: PTT 29.2 sec (22.0-33.0); Prothrombin Time 10.5 sec (9.5-12.1)
[2024-04-03 14:37] LABS: Anion Gap 12 mmol/L (10-20); BUN (Urea Nitrogen) 11 mg/dL (9.8-20.1); Calc. Creatinine Clearance 0 mL/min (70-130); Calcium 10.1 mg/dL (7.8-10.44); Carbon Dioxide 28 mmol/L (22-29); Chloride 102 mmol/L (98-107); Estimated GFR 100; Glucose 95 mg/dL (70-105); Potassium 3.8 mmol/L (3.5-5.1); Sodium 138 mmol/L (136-145)
== END 2024-04-03 13:35 | disposition home or self-care (01) ==
LOC: LABBT 13:34
PROVIDERS: ATTEND Surgery
DX: Z01.818 Encounter for other preprocedural examination (principal); M54.12 Radiculopathy, cervical region; M48.02 Spinal stenosis, cervical region
CPT/HCPCS: 80048; 85027; 85610; 85730; 93005; 93010

== ENCOUNTER 2024-04-07 08:45 | Observation (INO) | payer OTHER ==
[2024-04-03 14:01] VITALS: BMI 30.7
[2024-04-07] MEDS ORDERED: Rocuronium Bromide 10 MG/ML (10ML VIAL) ONE (10:42)
[2024-04-07] MEDS ORDERED: Lidocaine 1% PF 5 ML VIAL ONE (10:42)
[2024-04-07] MEDS ORDERED: fentaNYL PF 100 MCG/2 ML SYRINGE ONE ×3 (10:42→15:01)
[2024-04-07] MEDS ORDERED: PROPOFOL 20 ML ONE (10:42)
[2024-04-07] MEDS ORDERED: Midazolam HCl 2 mg/2 ml Vial ONE (11:04)
[2024-04-07] MEDS ORDERED: CEFAZOLIN 2 GM VIAL ONE (11:43)
[2024-04-07] MEDS ORDERED: Sodium Chloride 0.9% 100 ML ONE (11:43)
[2024-04-07] MEDS ORDERED: Famotidine/PF 20 mg/2ml Vial ONE (11:59)
[2024-04-07] MEDS ORDERED: Scopolamine 1 mg/72 hour Patch ONE (11:59)
[2024-04-07] MEDS ORDERED: Dexamethasone 20 MG/5 ML VIAL ONE (12:37)
[2024-04-07] MEDS ORDERED: ePHEDrine Sulfate 50 MG/10 ML VIAL ONE (13:21)
[2024-04-07] MEDS ORDERED: Lidocaine 2% PF 5 ML VIAL ONE (13:33)
[2024-04-07] MEDS ORDERED: Ondansetron PF 4 MG/2 ML Vial ONE (13:33)
[2024-04-07] MEDS ORDERED: Morphine Sulfate 2 MG/ML SYRINGE SLOW IVP PRN (14:06)
[2024-04-07] MEDS ORDERED: PACU-Morphine 4MG/ML VIAL SLOW IVP PRN (14:06)
[2024-04-07] MEDS ORDERED: Ondansetron HCl/PF 4 MG/2 ML Vial IVP PRN (14:06)
[2024-04-07] MEDS ORDERED: HYDROmorphone 2 MG/ML VIAL SLOW IVP PRN (14:06)
[2024-04-07] MEDS ORDERED: Promethazine HCl 25 MG/ML VIAL IM PRN (14:06)
[2024-04-07] MEDS ORDERED: NEOSTIGMINE 3 MG/3 ML SYRINGE ONE (14:08)
[2024-04-07] MEDS ORDERED: Glycopyrrolate 0.2 MG/ML 5 ML SYRINGE ONE (14:08)
[2024-04-07] MEDS ORDERED: diphenhydrAMINE 25 MG CAP PO PRN (14:37)
[2024-04-07] MEDS ORDERED: Milk Of Magnesia 30 ML UDCUP PO PRN (14:37)
[2024-04-07] MEDS ORDERED: Phenol 177 ML BOT PO PRN (14:40)
[2024-04-07] MEDS ORDERED: Benzocaine/Menthol 1 LOZ LOZ PO PRN (14:40)
[2024-04-07] MEDS ORDERED: Zolpidem Tartrate 5 MG TAB PO PRN (14:41)
[2024-04-07] MEDS ORDERED: Labetalol HCl 100 MG/20 ML VIAL ONE (14:42)
[2024-04-07] MEDS ORDERED: Thrombin 5000 UNITS/5 ML VIAL ONE (14:46)
[2024-04-07] MEDS ORDERED: Diazepam 5 MG TAB ONE (15:37)
[2024-04-07] MEDS ORDERED: fentaNYL 50 mcg/mL 1 mL Vial ONE (15:57)
[2024-04-07] MEDS: Sodium Chloride 0.9% 1,000 ML IV SCH (16:00)
[2024-04-07] MEDS: Morphine 2 MG/ML VIAL SLOW IVP PRN (17:12)
[2024-04-07] MEDS: HYDROcodone/Acetaminophen 7.5/325 mg Tablet PO PRN (17:13)
[2024-04-07] MEDS: hydrALAZINE 20 MG/ML VIAL SLOW IVP PRN (18:32)
[2024-04-07] MEDS: CEFAZOLIN 2 GM in Sodium Chloride 0.9% 100 ML IVPB SCH (21:01)
[2024-04-07] MEDS: ALPRAZolam 0.5 MG TAB PO PRN (21:02)
[2024-04-08] MEDS: Diazepam 5 MG TAB PO PRN (04:37)
[2024-04-08] MEDS: hydrALAZINE 20 MG/ML VIAL SLOW IVP SCH (06:44)
[2024-04-08] MEDS: Bisoprolol Fumarate/HCTZ 5 mg/6.25 mg Tablet PO SCH (09:18)
[2024-04-08] MEDS: Ondansetron PF 4 MG/2 ML Vial IVP PRN (09:18)
[2024-04-08] MEDS: Dexamethasone 10 MG/ML VIAL SLOW IVP SCH (09:18)
[2024-04-08] MEDS: Multivit, Therapeutic 1 TAB PO SCH (09:19)
[2024-04-08] MEDS: Acetaminophen 325 MG TAB PO PRN (09:19)
[2024-04-08] MEDS: Estradiol 1 MG TAB PO SCH (09:19)
[2024-04-08] MEDS: Pantoprazole DR 40 MG TAB PO SCH (09:19)
[2024-04-08] MEDS: traMADol HCl 50 MG TAB PO PRN (09:20)
[2024-04-08] MEDS: HYDROcodone/Acetaminophen 7.5/325 mg Tablet PO PRN (09:21)
[2024-04-08] MEDS: Ketorolac Tromethamine 30 MG (1 mL) VIAL IVP SCH (09:22)
[2024-04-08] MEDS: Acetaminophen/Codeine 30-300mg Tablet PO PRN (13:17)
[2024-04-08] MEDS ORDERED: Ketorolac Tromethamine 30 MG (1 mL) VIAL IVP PRN (14:30)
[2024-04-08 16:04] VITALS: BP 156/84; TEMP 97.7
[2024-04-08] MEDS: Dexamethasone 4 MG TAB PO SCH (16:44)
[2024-04-09] MEDS ORDERED: Pantoprazole DR 40 MG TAB PO SCH (09:00)
== END 2024-04-08 20:13 | disposition home or self-care (01) ==
LOC: SDC 08:45 → SURG B 16:24
PROVIDERS: ADMIT Surgery; ATTEND Surgery
PROC: 0RG20A0 Fusion of 2 or more Cervical Vertebral Joints with Interbody Fusion Device, Anterior Approach, Anterior Column, Open Approach (ICD-10-PCS; principal; 2024-04-07)
PROC: 0RG10J1 Fusion of Cervical Vertebral Joint with Synthetic Substitute, Posterior Approach, Posterior Column, Open Approach (ICD-10-PCS; 2024-04-07)
DX: M48.02 Spinal stenosis, cervical region (principal); M54.12 Radiculopathy, cervical region
CPT/HCPCS: C1713; J0360; J1100; J1885; J2001; J2250; J2272; J2405; J2704; J3010; J3490; J7050; J8540; S0028